=== PATIENT | male | born 1995 | race African-American/Black ===

== ENCOUNTER 2021-08-07 13:47 | Emergency (ER) | payer BC ==
[~2021-08-07] VITALS: Ht 180.3 cm; Wt 85.0 kg
[2021-08-07] MEDS ORDERED: CASIRIVIMAB 600 MG, IMDEVIMAB 600 MG in SODIUM CHLORIDE 0.9% 100 ML IV ONE (15:00)
[2021-08-07 16:24] VITALS: BP 122/60
== END 2021-08-07 16:35 | disposition home or self-care (01) ==
LOC: ER 13:47
DX: U07.1 COVID-19 (principal); R03.0 Elevated blood-pressure reading, without diagnosis of hypertension
CPT/HCPCS: 96365; 99284; J7050; Q0244